=== PATIENT | female | born 1995 | race African-American/Black ===

== ENCOUNTER 2025-05-09 21:27 | Emergency (ER) | payer SELFPAY ==
[2025-05-09] VITALS (21 sets, daily range): BP systolic 124–139; BP diastolic 66–93; PULSE 67–87; RESP 12–22; O2SAT 100
--- NOTE | 2025-05-09 21:15 | DI.CT_ITS ---
Exam(s) CT CHEST/ABD/PEL W EXAM: CT CHEST/ABD/PEL W CLINICAL HISTORY: trauma. TECHNIQUE: Imaging Protocol: Axial computed tomography images with coronal and sagittal reformatted images were created and reviewed CONTRAST MATERIAL: Intravenous: Omnipaque 350 Contrast volume:100 ml Oral: None COMPARISON: No exams were available for comparison FINDINGS: CHEST: LUNGS: No evidence of lung contusion or pleural effusion or pneumothorax. No significant incidental lung nodules evident.. MEDIASTINUM: No evidence of sternal fracture or mediastinal hematoma. No incidental hilar nor mediastinal adenopathy. CARDIAC: Heart size is normal. There is no pericardial effusion.Thoracic aorta unremarkable. OSSEOUS: No rib fractures identified. There is mild indentation of the superior endplates of T6 and T7 consistent with mild 10 percent height loss compression fractures, probably not acute . ABDOMEN: There is no ascites in the upper abdomen and there is no evidence of bowel wall nor mesenteric hematoma. No significant subcutaneous bruising. LIVER: Intact. No lacerations. No subcapsular hematomas. No incidental lesions. GALLBLADDER/BILIARY: No obvious gallbladder pathology. CBD is not dilated. PANCREAS: No evidence of pancreatic mass nor dilatation of the pancreatic duct. SPLEEN: Intact. No lacerations. Normal size. No lesions. Splenic and portal veins are patent. ADRENALS: There are no significant adrenal masses. KIDNEYS: Intact. No lacerations nor subcapsular hematomas. No solid lesions nor calculi nor hydronephrosis.. No cysts evident. ABDOMINAL AORTA: Unremarkable. Aortoiliac segments also unremarkable. LYMPH NODES: There is no retroperitoneal nor paraaortic adenopathy. ABDOMINAL WALL: No evidence of significant anterior abdominal wall nor inguinal hernia. No hematomas. GI: There is no evidence of bowel obstruction.No bowel wall hematomas. PELVIS: LYMPH NODES: There is no intrapelvic nor inguinal adenopathy. GI: No evidence of appendicitis.No evidence of sigmoid diverticulitis. URINARY BLADDER: Unremarkable. Nondistended. No extravasation. REPRODUCTIVE: Tampon is noted in the vagina. Uterus and adnexal regions appear age-appropriate. OSSEOUS: There is a healing fracture of the left transverse process of L3. There appears to be a healed nondisplaced fracture of the right transverse process of L2. There are no lumbar vertebral compression fractures nor listhesis. No pars defects. No disc space narrowing. No sacral fracture nor c occygeal fracture evident. IMPRESSION: 1. There is slight indentation of the superior endplates of T6 and T7 vertebral bodies, both exhibiting approximately 10 percent height loss. Correlation with site of tenderness recommended as these do not appear obviously acute. 2. There is a subacute appearing healing fracture of the left transverse process of L3. There is also healed subtle fracture of the right transverse process of L2. There are no acute fractures in the lumbar spinal column. 3. No other findings in the chest, abdomen, and pelvis Preliminary virtual Radiology report was reviewed RADIATION DOSE DELIVERED: 438.11mGy.cm Total DLP DATA REPOSITORY: All CT scans at this facility are submitted to the National Radiology Data Registry (NRDR) Dose Index Registry (DIR) with the [employer] (ACR). RADIATION OPTIMIZATION: All CT scans at this facility use at least one of these dose optimization techniques: automated exposure control; mA and/or kV adjustment per patient size (includes targeted exams where dose is matched to clinical indication); or iterative reconstruction.
--- NOTE | 2025-05-09 21:27 | DI.CT_ITS ---
Exam(s) CT THORACIC LUMBAR SPINE REC EXAM: CT THORACIC LUMBAR SPINE REC CLINICAL HISTORY: trauma TECHNIQUE: COMPARISON: CT CT CHEST/ABD/PEL W from 05/09/2025 FINDINGS: THORACIC SPINAL COLUMN: There is approximately 10 percent height loss at superior endplates of T6 and T7 vertebral bodies, without obvious acute fracture lines. No posterior cortex retropulsion at these levels nor elsewhere in the thoracic spinal column. No spinal canal compromise. No facet joint malalignment. No incidental osseous lesions LUMBOSACRAL SPINAL COLUMN: There are no compression fractures nor wedge fractures in the lumbosacral spinal column. No listhesis nor disc space narrowing. No significant facet arthropathy nor facet joint malalignment. There is a subacute appearing healing fracture of the left transverse process of L3 vertebral body. There is also a healed right transverse process fracture of L2. There are no acute appearing fractures. No canal compromise. No obvious disc herniations. No significant facet joint findings. Sacrum and SI joints appear unremarkable. IMPRESSION: 1. Mild flattening of the superior endplates of T6 and T7 with approximately 10 percent height loss in both. No retropulsion. Correlation with site of tenderness recommended as these do not appear acute. 2. There is a subacute appearing healing fracture of the left transverse process of L3 vertebral body and there is a healed fracture of the right L2 transverse process. There are no compression fractures in the lumbosacral spine and no canal compromise. Preliminary virtual Radiology report was reviewed
--- NOTE | 2025-05-09 21:27 | DI.CT_ITS ---
Exam(s) CT HEAD CERVICAL SPINE WO EXAM: CT HEAD CERVICAL SPINE WO CLINICAL HISTORY: trauma. TECHNIQUE: Imaging Protocol: Axial computed tomography images with coronal and sagittal reformatted images were created and reviewed COMPARISON: No exams were available for comparison FINDINGS: BRAIN: There are no skull fractures nor fluid in the visualized paranasal sinuses. There is no evidence of intracranial hemorrhage, mass effect, or shift of midline structures. There are no extra-axial fluid collections. The ventricles are not enlarged or shifted and there is no blood within the ventricular system nor within the basal cisterns. CERVICAL SPINE: There is no evidence of fracture nor listhesis. No significant prevertebral soft tissue swelling. There is no significant facet joint malalignment. No significant osseous lesions evident. IMPRESSION: No acute intracranial findings on this noninfused CT scan of the brain. No evidence of cervical spine fracture, malalignment, nor acute compromise of the cervical spinal canal. RADIATION DOSE DELIVERED: 1,122.75mGy.cm Total DLP DATA REPOSITORY: All CT scans at this facility are submitted to the National Radiology Data Registry (NRDR) Dose Index Registry (DIR) with the [employer] (ACR). RADIATION OPTIMIZATION: All CT scans at this facility use at least one of these dose optimization techniques: automated exposure control; mA and/or kV adjustment per patient size (includes targeted exams where dose is matched to clinical indication); or iterative reconstruction.
--- NOTE | 2025-05-09 21:28 | ED.GENADUL_ITS ---
Discharge Plan Disposition Patient Disposition: Transfer-Acute Inpatient Care Specific Acute Inpt Facility: Other Condition: Serious Discharge Details Clinical Impression: Traumatic injury of lumbar spinal region, Trauma Primary Care Provider: [facility] Provider: Olya Cordova [facility] General Mode of arrival: EMS . Date/Time Provider Initiated Documentation: 05/09/25 21:32 . Limitations to Documentation: no limitations . Information obtained by: patient, EMS and RN notes reviewed . HPI Narrative: 30-year-old female presents to the ER with a with a chief complaint of C-spine tenderness, midline T-spine tenderness and left lower leg weakness after a wr estling at the [facility]. She was lifted up and was dropped down onto a hard surface with her neck hyperextended, She is ANO x 4 upon arrival is moving both of her upper extremities without difficulty. She does appear anxious and does have some lower extremity tremors noted. She does have decreased dorsal pedal flexion and extension on the left lower extremity, also has decreased sensation to her left lower extremity. Denies any chest pain abdominal pain or any other associated symptoms. Review of Systems All systems reviewed & are unremarkable except as noted in HPI and below Constitutional Constitutional: Reports weakness Eyes Eyes: Denies loss of vision ENT Ears, Nose, Mouth, and Throat: Denies dizziness and Reports neck pain Cardiovascular Cardiovascular: Denies chest pain and Denies dyspnea Respiratory Respiratory: Denies dyspnea Gastrointestinal Gastrointestinal: Denies abdominal pain, Denies nausea and Denies vomiting Musculoskeletal Musculoskeletal: Reports as per HPI, Reports muscle weakness, Reports neck pain and Reports numbness Neurologic Neurologic: Reports as per HPI, Denies abnormal speech, Denies confusion, Denies dizziness, Reports localized weakness, Denies loss of vision, Reports numbness, Denies convulsions, Reports tremor(s) and Reports weakness Psychiatric Psychiatric: Denies confusion Exam Narrative Exam Narrative: General: Well Developed, Awake and Alert, conversant. Skin: Warm and Dry HEENT: Head: No palpable deformities, Normocephalic Eyes: Pupils PERRLA, EOM's intact. No periorbital eccymosis or step off Ears: Canal patent. Tympanic membranes are clear . No easton's sign, no hemptympanum. Nose/Face: Atraumatic. Facial bones nontender to palpation and stable with manipulation. Mouth/Throat: No intraoral trauma. Teeth and mandible are intact. Neck: Complaining of some paraspinous tenderness and midline C-spine tenderness and, arrives in a c-collar , trachea midline. Chest: No surface trauma. Nontender without crepitus or deformity. Lungs clear to ausculatation bilaterally. Heart: RRR, no rubs, murmurs or gallop. Abdomen: No abrasions, ecchymosis, or surface trauma. Nondistended. Nontender to palpation no guarding, rebound, or rigidity. Pelvis: Nontender to palpation and stable to compression. Femoral pulses strong and equal Extremities: no surface trauma. Peripheral pulses intact and equal. Decreased sensation to left lower extremity. Neuro: ANO x4, GCS 15, cranial nerves II through XII intact. Decrease pedal flexion and extension to left lower extremity, decreased sensation. Moves upper extremities without difficulty, does move all extremities. Medical Decision Making 30-year-old female presents to the ER with a with a chief complaint of C-spine tenderness, midline T-spine tenderness and left lower leg weakness [place]. She was lifted up and was dropped down onto a hard surface with her neck hyperextended, She is ANO x 4 upon arrival is moving both of her upper extremities without difficulty. She does appear anxious and does have some lower extremity tremors noted. She does have decreased dorsal pedal flexion and extension on the left lower extremity, also has decreased sensation to her left lower extremity. Denies any chest pain abdominal pain or any other associated symptoms. She is not taking any medications not regular basis. She reports she is supposed to be on antidepressants but is not taking them. Denies any significant past medical history or surgeries. Trauma workup ordered including CBC CMP urine , CT head C-spine chest abdomen pelvis with recons of T and L-spine. Offered analgesics, patient declined. CT T-spine contrast shows flattening of the superior T6 and T7 endplate, representing prior compression fractures with less than 10% vertebral body height loss, no retropulsion. No gross evidence for high-grade spinal canal or neural foraminal stenosis, CT L-spine chronic healing fracture within the right L2 and L3 transverse process. CMP chest abdomen pelvis shows diffuse lumbar spondylolysis with mild neural sauceda narrowing L4-S1 And trace free pelvic fluid which appears physiologic. No free air noted int raperitoneal space. Please see official CT results. On patient reevaluation her sensation to her left lower extremity is somewhat returning however she does still have some weakness with dorsiflexion and pedal flexion of her left lower extremity. Patient is from [facility] and prefers to be transferred there we will call Tuesday for further evaluation and MRI. 2333: Call made to [facility] who agrees to accept patient for MRI and further trauma eval for spinal cord syndrome to [facility] accepting physician Hilaria, Will arrange transport. Informed patient and friend who is here, and they verbalized understanding. Patient is complaining of mild anxiety, will give 1 mg lorazepam PO. Care is to be handed off to oncoming provider Meme Cordova pending transfer. Patient is hemodynamically stable at time of this dictation. Imaging Data Radiologic Study: Imaging: CT Scan Radiologist's impression: Exam: CT Cervical Spine Without Contrast Exam date and time: 05/09/2025 9:44 PM Age: 30 years old Clinical indication: Injury or trauma; Other: Wrestling injury; Blunt trauma (contusions or hematomas) TECHNIQUE: Imaging protocol: Computed tomography of the cervical spine without contrast. COMPARISON: No relevant prior studies available. FINDINGS: Bones: Anatomic alignment of the cervical spine. No evidence for an acute cervical spine fracture. No evidence for high-grade spinal canal or neural foraminal stenosis detected on this non-contrast CT study. Lungs: The imaged lung apices are well aerated. Soft tissues: Unremarkable. IMPRESSION: No evidence for an acute cervical spine fracture. Radiologic Study #2: Imaging: CT Scan Radiologist's impression: Exam: CT Chest With Contrast; Diagnostic Exam date and time: 05/09/2025 9:52 PM Age: 30 years old Clinical indication: Injury or trauma; Other: Wrestling injury; Generalized; Blunt trauma (contusions or hematomas) TECHNIQUE: Imaging protocol: Diagnostic computed tomography of the chest with contrast. Contrast material: ONIPAQUE 350; Contrast volume: 100 ml; Contrast route: INTRAVENOUS (IV); COMPARISON: CT HEAD CERVICAL SPINE WO 05/09/2025 9:44 PM FINDINGS: Lungs: The lungs are clear without infiltrate or edema. Pleural spaces: No pleural effusion. No pneumothorax. Heart: The heart is normal in size. No pericardial effusion. Lymph nodes: No lymphadenopathy within the chest. Vasculature: The thoracic aorta opacifies normally with contrast without any aneurysm. Bones/joints: Anatomic alignment of the thoracic spine without subluxation. Slight flattening of the T6 and T7 superior endplates with tiny Schmorl's nodes. Otherwise, the remainder of the thoracic spine demonstrates normal vertebral height. No gross evidence for high-grade spinal canal or neural foraminal stenosis. Soft tissues: Unremarkable. IMPRESSION: 1. No evidence for an acute traumatic process within the chest. 2. Slight flattening within the superior T6 and T7 endplates, suggesting chronic fractures, resulting in less than 10% vertebral body height loss. No retropulsion. Radiologic Study #3: Imaging: CT Scan Radiologist's impression: Imaging protocol: Computed tomography of the lumbar spine without contrast. COMPARISON: CT CHEST/ABD/PEL W 05/09/2025 9:52 PM FINDINGS: Bones/joints: Anatomic alignment of the lumbar spine. No evidence for vertebral body compression fracture. Slight deformity within the right L2 transverse process suggesting sequela of a chronic, healed fracture. A chronic healing/healed fracture is seen within the left L3 transverse process. No evidence for an additional fracture. Diffuse lumbar spondylosis likely resulting in areas of mild neural foraminal narrowing at L4-L5 and L5-S1. Soft tissues: Unremarkable. IMPRESSION: 1. No evidence for an acute lumbar spine fracture. 2. Chronic healing/healed fractures within the right L2 transverse process and left L3 transverse process. 3. Please refer to the CT abdomen and pelvis report for more detailed description of the intra-abdominal and intra-pelvic findings. Lab Data Lab results reviewed: Yes I reviewed the patient's lab results. Labs: Laboratory Tests Range/Units 05/09/25 21:30 WBC (4.4-10.8) 10^3/uL 3.68 L RBC (3.93-5.22) 10^6/uL 4.26 Hgb (11.2-15.7) g/dL 9.6 L Hct (36.0-46.0) % 31.6 L MCV (80-95) fL 74 L MCH (27.0-33.0) pg 22.5 L MCHC (32.0-36.0) % 30.4 L RDW (11.7-14.6) % 19.1 H Plt Count (130-400) 10^3/uL 285 MPV (8.0-11.0) fL 10.6 Immature Gran % % 0.3 Neutrophils % % 59.2 Lymphocytes % % 32.1 Monocytes % % 7.3 Eosinophils % % 0.8 Basophils % % 0.3 Nucleated RBC % (0.0-0.3) % 0.0 Absolute Neutrophils (1.2-6.7) 10^3/uL 2.18 Absolute Lymphocytes (1.2-3.4) 10^3/uL 1.18 L Absolute Monocytes (0.1-0.8) 10^3/uL 0.27 Absolute Eosinophils (0.0-0.7) 10^3/uL 0.03 Absolute Basophils (0.0-0.2) 10^3/uL 0.01 RBC Morphology See Below Microcytosis 2+ Sodium (136-145) mmol/L 145 Potassium (3.5-5.1) mmol/L 3.4 L Chloride (98-107) mmol/L 107 Carbon Dioxide (21.0-32.0) mmol/L 24.4 Anion Gap (3-11) mmol/L 13.6 H BUN (7-18) mg/dL 18 Creatinine (0.55-1.02) mg/dL 1.1 H Est GFR (CKD-EPI 2020) (mL/min/1.73m2) 69.32 Glucose (74-106) mg/dL 89 Calcium (8.5-10.1) mg/dL 8.7 Total Bilirubin (0.2-1.0) mg/dL 0.3 AST (15-37) U/L 24 ALT (14-59) U/L 20 Alkaline Phosphatase (46-116) U/L 63 Total Protein (6.4-8.2) g/dL 7.5 Albumin (3.4-5.0) g/dL 3.8 Serum HCG, Qual Negative PFSH All Active Problems (Updated 05/09/25 @ 23:41 by Sarina Najera NP) Trauma (Acute) Traumatic injury of lumbar spinal region (Acute) Social History Smoking risk assessment performed?: No
[2025-05-09] MEDS: Normal Saline Flush 10 ML SYR IVP (21:36)
[2025-05-09] MEDS: Omnipaque 350 MG/ML 100 ML BTL IJ (21:36)
[2025-05-09] MEDS: Normal Saline - Diluent 50 ML VIAL IJ (21:36)
[2025-05-09 21:44] LABS: Abs Immature Grans 0.01 10^3/uL (0.0-0.06); HCT 31.6 % (36.0-46.0); HGB 9.6 g/dL (11.2-15.7); Immature Grans % 0.3 %; MCH 22.5 pg (27.0-33.0); MCHC 30.4 % (32.0-36.0); MCV 74 fL (80-95); MPV 10.6 fL (8.0-11.0); Platelet Count 285 10^3/uL (130-400); RBC 4.26 10^6/uL (3.93-5.22); RDW 19.1 % (11.7-14.6); RDW-SD 51.7 fL; WBC 3.68 10^3/uL (4.4-10.8)
[2025-05-09 21:59] LABS: Microcytosis 2+
[2025-05-09 22:02] LABS: ALT 20 U/L (14-59); AST 24 U/L (15-37); Albumin 3.8 g/dL (3.4-5.0); Alkaline Phosphatase 63 U/L (46-116); Anion Gap 13.6 mmol/L (3-11); BUN 18 mg/dL (7-18); Bilirubin, Total 0.3 mg/dL (0.2-1.0); CO2 24.4 mmol/L (21.0-32.0); Calcium 8.7 mg/dL (8.5-10.1); Chloride 107 mmol/L (98-107); Estimated GFR 69.32 (mL/min/1.73m2); Glucose 89 mg/dL (74-106); Potassium 3.4 mmol/L (3.5-5.1); Sodium 145 mmol/L (136-145); Total Protein 7.5 g/dL (6.4-8.2)
[2025-05-09 22:08] LABS: HCG Qual (Serum) Negative
--- NOTE | 2025-05-09 22:35 | DI.VRAD_ITS ---
PROCEDURE INFORMATION: Exam: CT Head Without Contrast Exam date and time: 05/09/2025 9:44 PM Age: 30 years old Clinical indication: Injury or trauma; Other: Wrestling injury; Blunt trauma (contusions or hematomas) TECHNIQUE: Imaging protocol: Computed tomography of the head without contrast. COMPARISON: No relevant prior studies available. FINDINGS: Brain: No significant volume loss within the brain parenchyma. No intracranial hemorrhage. No extra-axial fluid collection. No midline shift. No loss of reynoso-white differentiation to suggest an acute cortical infarct. Cerebral ventricles: No hydrocephalus. Paranasal sinuses: Mild polypoid mucosal thickening inferiorly within the left maxillary sinus. The imaged paranasal sinuses are otherwise well aerated. No fluid levels. Mastoid air cells: The mastoid air cells are well aerated. Orbital cavities: The intraorbital contents are normal appearance. Bones: No evidence for acute skull fracture. Soft tissues: Unremarkable. IMPRESSION: No acute intracranial abnormality. PROCEDURE INFORMATION: Exam: CT Cervical Spine Without Contrast Exam date and time: 05/09/2025 9:44 PM Age: 30 years old Clinical indication: Injury or trauma; Other: Wrestling injury; Blunt trauma (contusions or hematomas) TECHNIQUE: Imaging protocol: Computed tomography of the cervical spine without contrast. COMPARISON: No relevant prior studies available. FINDINGS: Bones: Anatomic alignment of the cervical spine. No evidence for an acute cervical spine fracture. No evidence for high-grade spinal canal or neural foraminal stenosis detected on this non-contrast CT study. Lungs: The imaged lung apices are well aerated. Soft tissues: Unremarkable. IMPRESSION: No evidence for an acute cervical spine fracture. Dictated and Authenticated by: Olya Navarro MD. Orderin Reinaldo Branch MD
--- NOTE | 2025-05-09 22:47 | DI.VRAD_ITS ---
PROCEDURE INFORMATION: Exam: CT Thoracic Spine Without Contrast Exam date and time: 05/09/2025 9:52 PM Age: 30 years old Clinical indication: Injury or trauma; Other: [place] injury; Blunt trauma (contusions or hematomas) TECHNIQUE: Imaging protocol: Computed tomography of the thoracic spine without contrast. COMPARISON: CT HEAD CERVICAL SPINE WO 05/09/2025 9:44 PM FINDINGS: Bones/joints: Anatomic alignment of the thoracic spine without subluxation. Slight flattening of the T6 and T7 superior endplates with tiny Schmorl's nodes. No retropulsion. Otherwise, the remainder of the thoracic spine demonstrates normal vertebral height. No gross evidence for high-grade spinal canal or neural foraminal stenosis. Soft tissues: Unremarkable. IMPRESSION: 1. No evidence for an acute thoracic spine fracture. 2. Slight flattening of the superior T6 and T7 endplates, likely representing chronic compression fractures, resulting in less than 10% vertebral body height loss. No retropulsion. 3. Please see CT chest report for more detailed description of the intrathoracic findings. PROCEDURE INFORMATION: Exam: CT Lumbar Spine Without Contrast Exam date and time: 05/09/2025 9:52 PM Age: 30 years old Clinical indication: Injury or trauma; Other: [place] injury; Blunt trauma (contusions or hematomas) TECHNIQUE: Imaging protocol: Computed tomography of the lumbar spine without contrast. COMPARISON: CT CHEST/ABD/PEL W 05/09/2025 9:52 PM FINDINGS: Bones/joints: Anatomic alignment of the lumbar spine. No evidence for vertebral body compression fracture. Slight deformity within the right L2 transverse process suggesting sequela of a chronic, healed fracture. A chronic healing/healed fracture is seen within the left L3 transverse process. No evidence for an additional fracture. Diffuse lumbar spondylosis likely resulting in areas of mild neural foraminal narrowing at L4-L5 and L5-S1. Soft tissues: Unremarkable. IMPRESSION: 1. No evidence for an acute lumbar spine fracture. 2. Chronic healing/healed fractures within the right L2 transverse process and left L3 transverse process. 3. Please refer to the CT abdomen and pelvis report for more detailed description of the intra-abdominal and intra-pelvic findings. Dictated and Authenticated by: Olya Navarro MD. Orderin Reinaldo Branch MD
--- NOTE | 2025-05-09 22:47 | DI.VRAD_ITS ---
PROCEDURE INFORMATION: Exam: CT Chest With Contrast; Diagnostic Exam date and time: 05/09/2025 9:52 PM Age: 30 years old Clinical indication: Injury or trauma; Other: Wrestling injury; Generalized; Blunt trauma (contusions or hematomas) TECHNIQUE: Imaging protocol: Diagnostic computed tomography of the chest with contrast. Contrast material: ONIPAQUE 350; Contrast volume: 100 ml; Contrast route: INTRAVENOUS (IV); COMPARISON: CT HEAD CERVICAL SPINE WO 05/09/2025 9:44 PM FINDINGS: Lungs: The lungs are clear without infiltrate or edema. Pleural spaces: No pleural effusion. No pneumothorax. Heart: The heart is normal in size. No pericardial effusion. Lymph nodes: No lymphadenopathy within the chest. Vasculature: The thoracic aorta opacifies normally with contrast without any aneurysm. Bones/joints: Anatomic alignment of the thoracic spine without subluxation. Slight flattening of the T6 and T7 superior endplates with tiny Schmorl's nodes. Otherwise, the remainder of the thoracic spine demonstrates normal vertebral height. No gross evidence for high-grade spinal canal or neural foraminal stenosis. Soft tissues: Unremarkable. IMPRESSION: 1. No evidence for an acute traumatic process within the chest. 2. Slight flattening within the superior T6 and T7 endplates, suggesting chronic fractures, resulting in less than 10% vertebral body height loss. No retropulsion. PROCEDURE INFORMATION: Exam: CT Abdomen And Pelvis With Contrast Exam date and time: 05/09/2025 9:52 PM Age: 30 years old Clinical indication: Injury or trauma; Other: Wrestling injury; Generalized; Blunt trauma (contusions or hematomas) TECHNIQUE: Imaging protocol: Computed tomography of the abdomen and pelvis with contrast. Contrast material: ONIPAQUE 350; Contrast volume: 100 ml; Contrast route: INTRAVENOUS (IV); COMPARISON: CT THORACIC LUMBAR SPINE REC 05/09/2025 9:52 PM FINDINGS: Esophagus: The distal esophagus is normal in appearance. Liver: The liver is normal in size. Focal fatty infiltration along the falciform ligament. No abnormal enhancement or mass. Gallbladder and biliary ducts: The gallbladder is normal in appearance. No calcified gallstones. No gallbladder wall thickening or pericholecystic fluid. No bile duct dilatation. Pancreas: The pancreas is normal in appearance. No pancreatic ductal dilatation. Spleen: The spleen is normal in size and normal in appearance. Adrenal glands: The bilateral adrenal glands are normal appearance. Kidneys and ureters: The bilateral kidneys are normal in appearance. No renal or intraureteral calculi. No hydroureteronephrosis. Stomach and bowel: The stomach and small bowel are normal in appearance. Minimal stool within the colon. No bowel obstruction. Appendix: The appendix is normal in appearance. Intraperitoneal space: Trace free pelvic fluid. No free air or abscess. Vasculature: The abdominal aorta and bilateral iliac arteries are normal in caliber without aneurysm. Lymph nodes: No lymphadenopathy within the abdomen and pelvis. Urinary bladder: The urinary bladder is normal in appearance. Reproductive: The uterus is normal in appearance. No adnexal mass. A tampon is seen within the vaginal vault. Bones/joints: Anatomic alignment of the lumbar spine. No evidence for vertebral body compression fracture. Slight deformity within the right L2 transverse process suggesting sequela of a chronic, healed fracture. A chronic healing/healed fracture is seen within the left L3 transverse process. No evidence for an additional fracture. Diffuse lumbar spondylosis likely resulting in areas of mild neural foraminal narrowing at L4-L5 and L5-S1. Soft tissues: Unremarkable. IMPRESSION: 1. No evidence for acute traumatic process within the abdomen and pelvis. 2. Trace free pelvic fluid, within physiological variation. 3. Chronic healing/healed fractures within the right L2 transverse process and left L3 transverse process. Dictated and Authenticated by: Olya Navarro MD. Orderin Reinaldo Branch MD
[2025-05-10] VITALS (81 sets, daily range): BP systolic 104–150; BP diastolic 50–121; PULSE 50–95; RESP 11–22; O2SAT 97–100
[2025-05-10] MEDS: LORazepam 1 MG TAB PO ×2 (00:45→08:21)
--- NOTE | 2025-05-10 01:12 | W.EDPROG ---
Date of service: 05/10/25 Time of Service: 01:12 Medical Decision Making This patient was signed out to me. Please see previous notes. In brief, 30yo F with hyperextension injury with LE neurologic deficits (improving). CT reassuring, no MRI available overnight. Accepted to [facility] for trauma/spine. Remains in the ED on spine precautions pending transport. On reassessment she has mild decreased strength with left ankle dorsiflexion, and subjectively diminished sensation to light touch throught LLE compared to right. She reports this is much improved. Attempted to arrange transport overnight with all local services declining. Anticipate availability this morning. Will be signed out to oncoming physician. Neuro: ? GCS 15.? Motor- 4/5 strength LLE ankle dorisflexion, otherwise 5/5 strength symmetric bilateral upper and lower extremities Sensation- ?Intact to light touch multiple dermatomes including upper and lower extremities. Sujbectively diminished LLE compared to right Reflexes- 2/4 achilles & patellar, no clonus Discharge Plan Disposition Patient Disposition: Transfer-Acute Inpatient Care Specific Acute Inpt Facility: Other Condition: Serious Discharge Details Clinical Impression: Traumatic injury of lumbar spinal region, Trauma Primary Care Provider: Makayla,Local ED Provider: Olya Cordova
== END 2025-05-10 08:34 | disposition short-term general hospital (02) ==
PROVIDERS: Registered Nurse Emergency; Emergency Provider Student in an Organized Health Care Education/Training Program
DX: S39.92XA Unspecified injury of lower back, initial encounter (principal); Y33.XXXA Other specified events, undetermined intent, initial encounter
CPT/HCPCS: 99285 ×2; 00123; 74177; 80053; 70450; 71260; 72125; 84703; 85025; J3490